=== PATIENT | female | born 1980 | race Caucasian/White ===

== ENCOUNTER 2017-04-09 05:35 | Day surgery (SDC) | payer BC, OTHER ==
[~2017-04-09] VITALS: Ht 162.6 cm; Wt 79.9 kg
[~2017-04-09 05:35] MED LIST: CELEBREX200 MG PO; ENDOCET 5-3251 EACH PO; INDERAL40 MG PO; METHIMAZOLE10 MG PO; ROBAXIN500 MG PO; SYNTHROID100 MCG PO; TOPAMAX50 MG PO
[2017-04-09 06:02] VITALS: BP 135/71
[2017-04-09 19:20] VITALS: BP 112/69
[2017-04-09 23:57] VITALS: BP 126/63
[2017-04-10 03:28] VITALS: BP 114/66
[2017-04-10 05:50] LABS: MCH 28.8 PG (29.0-34.0); MCHC 32.9 G/DL (30.0-36.0); MCV 87.6 FL (83-99); MEAN PLAT.VOLUME 9.9 uM^3 (9.5-12.4); PLATELET COUNT 196 K/uL (156-360); RBC DIS.WIDTH-CV 13.1 % (11.8-14.6); RBC DIS.WIDTH-SD 42.2 % (39-53); RED BLOOD COUNT 3.54 M/uL (3.80-5.20); WHITE BLOOD COUNT 11.4 K/uL (4.1-10.2)
[2017-04-10 06:13] LABS: ANION GAP 9 MEQ/L (2-14); CHLORIDE 109 MEQ/L (99-109); GFR ESTIMATE (CALCULATED) > 59 mL/min/; GLUCOSE 95 mg/dL (70-99); POTASSIUM 3.7 MEQ/L (3.7-5.4); SAMPLE HEMOLYSIS CHECK 0; SAMPLE ICTERIC CHECK 0; SAMPLE LIPEMIA CHECK 0; SODIUM 140 MEQ/L (136-147); UREA NITROGEN (BUN) 11 mg/dL (9-23)
[2017-04-10 08:34] VITALS: BP 124/66
[2017-04-10] MEDS ORDERED: ZOFRAN4 MG PO (08:34)
[2017-04-10] MEDS ORDERED: ENDOCET 5-3251 EACH PO (08:34)
[2017-04-10 10:31] LABS: EOSINOPHIL (%) 0.3 % (0-5); HEMATOCRIT 29.2 % (36.0-46.0); IMMATURE GRANULOCYTE (%) 0.4 % (0.0-0.7); INSTRUMENT ABS NEUTROPHIL CT 6.9 K/uL; LYMPHOCYTE COUNT 3.1 K/uL (1.0-2.8); MCH 28.3 PG (29.0-34.0); MCHC 32.2 G/DL (30.0-36.0); MONOCYTE (%) 4.5 % (3-12); MONOCYTE COUNT 0.5 K/uL (0-0.8); NEUTROPHIL (%) 65.2 % (45-76); NEUTROPHIL COUNT 6.9 K/uL (1.8-6.4); PLATELET COUNT 179 K/uL (156-360); RBC DIS.WIDTH-CV 13.2 % (11.8-14.6); RBC DIS.WIDTH-SD 42.5 % (39-53); RED BLOOD COUNT 3.32 M/uL (3.80-5.20); WHITE BLOOD COUNT 10.5 K/uL (4.1-10.2)
[2017-04-10 10:59] VITALS: BP 116/67
[2017-04-10] MEDS ORDERED: IBUPROFEN800 MG PO (11:33)
== END 2017-04-10 11:54 | disposition home or self-care (01) ==
LOC: SDC 05:35 → 2SOUTH 11:55 → 2EAST 11:55 → 2SOUTH 11:55 → ENRESERV 12:03 → 2EAST 13:47
PROVIDERS: Obstetrics & Gynecology
PROC: 0USG7ZZ Reposition Vagina, Via Natural or Artificial Opening (ICD-10-PCS; principal; 2017-04-09)
PROC: 0UT94ZZ Resection of Uterus, Percutaneous Endoscopic Approach (ICD-10-PCS; principal; 2017-04-09)
PROC: 0UT74ZZ Resection of Bilateral Fallopian Tubes, Percutaneous Endoscopic Approach (ICD-10-PCS; principal; 2017-04-09)
DX: N80.0 Endometriosis of uterus (principal); N72 Inflammatory disease of cervix uteri; N87.9 Dysplasia of cervix uteri, unspecified; N81.4 Uterovaginal prolapse, unspecified; E03.9 Hypothyroidism, unspecified; E66.3 Overweight; Z68.26 Body mass index [BMI] 26.0-26.9, adult; Z80.3 Family history of malignant neoplasm of breast; Z80.41 Family history of malignant neoplasm of ovary; Q51.2 Other doubling of uterus
CPT/HCPCS: 80048; 81003; 85025; 85027; 88302; 88307; G0378; J0690; J1100; J1170; J1885; J2001; J2250; J2270; J2405; J2704; J2710; J2795; J3010; J3475; J7120; Q0175; S0074